=== PATIENT | male | born 2000 | race Caucasian/White ===

== ENCOUNTER 2020-04-10 18:11 | Emergency (ER) | payer SELFPAY ==
--- NOTE | 2020-04-10 19:21 | EDM.PDOC ---
ED HPI GENERAL MEDICAL PROBLEM - General Chief Complaint: ENT Problem Stated Complaint: SORE THROAT Time Seen by Provider: 04/10/20 19:05 - History of Present Illness INITIAL COMMENTS - FREE TEXT/NARRATIVE: 1-year-old male presents the emergency room with a sore throat. The sore throat started earlier this afternoon. Seems to be in the left side feels like he has some swelling in the front of his neck. The patient is most c oncerned because he has a history of an enlarged thyroid and a strong family history of thyroid problems. Patient denies any fevers or chills he has not tried anything for the sore throat. Patient has not had any abdominal pain no nausea vomiting constipation or diarrhea. He has not any breathing difficulties or shortness of breath. He is able to swallow without difficulty. Throat Pain Score (Numeric/FACES): 5 - Related Data Allergies Allergy/AdvReac Type Severity Reaction Status Date / Time No Known Allergies Allergy Verified 04/10/20 18:38 Home Meds: Home Meds . [No Known Home Meds] 04/10/20 [History] Past Medical History - Past Surgical History Musculoskeletal Surgical History: Reports: Other (See Below) Other Musculoskeletal Surgeries/Procedures:: back surgery- L3-L5 fused. 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 tibia fx. football injury Social & Family History - Tobacco Use Smoking Status *Q: Never Smoker - Caffeine Use Caffeine Use: Reports: None - Recreational Drug Use Recreational Drug Use: No ED ROS ENT - Review of Systems Review Of Systems: See Below Constitutional: Reports: No Symptoms HEENT: Reports: Throat Pain, Other Respiratory: Reports: No Symptoms Cardiovascular: Reports: No Symptoms Endocrine: Reports: No Symptoms GI/Abdominal: Reports: No Symptoms : Reports: No Symptoms ED EXAM, ENT - Physical Exam Exam: See Below Exam Limited By: No Limitations General Appearance: Alert, No Apparent Distress Eye Exam: Bilateral Eye: Normal Inspection Ears: Normal External Exam, Normal Canal, Hearing Grossly Normal, Normal TMs Nose: Normal Inspection, Normal Mucousa, No Blood Mouth/Throat: Normal Inspection, Normal Gums, Normal Lips, Normal Oropharynx (For the most part normal. Tonsils are slightly enlarged no erythema no exudate noted over the tonsils or the posterior pharynx.), Normal Teeth Head: Atraumatic, Normocephalic Neck: Normal Inspection, Supple, Non-Tender, Full Range of Motion, Thyromegaly (Possibly minimally enlarged). No: Lymphadenopathy (L), Lymphadenopathy (R) Respiratory/Chest: No Respiratory Distress, Lungs Clear Cardiovascular: Regular Rate, Rhythm, No Edema, No Murmur GI/Abdominal: Normal Bowel Sounds, Soft, Non-Tender, Abnormal Bowel Sounds (Spleen is not tender liver is not tender) Course - Vital Signs Last Recorded V/S: Last Vital Signs Temp 36.6 C 04/10/20 18:35 Pulse 80 04/10/20 18:35 Resp 18 04/10/20 18:35 BP 125/72 04/10/20 18:35 Pulse Ox 98 04/10/20 18:35 - Orders/Labs/Meds Orders: Active Orders 24 hr Category Date Time Status CULTURE STREP A CONFIRMATION [] Stat Lab 04/10/20 18:40 Results STREP SCRN A RAPID W CULT CONF [] Stat Lab 04/10/20 18:40 Results - Re-Assessments/Exams Free Text/Narrative Re-Assessment/Exam: 04/10/20 19:24 Rapid strep is negative. I discussed the implications of this with the patient will go ahead discharge home. Departure - Departure Time of Disposition: 19:24 Disposition: Home, Self-Care 01 Clinical Impression: Pharyngitis - Discharge Information Referrals: PCP,Not In Area [Primary Care Provider] - Additional Instructions: Turn to the emergency room with any questions problems or worsening symptoms. Tylenol or Motrin as needed for discomfort you may also try [id number] throat lozenges. The confirmatory strep culture will be resulted in a day or 2 if it is positive you should hear from us. Follow-up with your regular physician to recheck your thyroid in the near future. Sepsis Event Note (ED) - Evaluation Sepsis Screening Result: No Definite Risk - Focused Exam Vital Signs: Vital Signs Temp Pulse Resp BP Pulse Ox 04/10/20 18:35 36.6 C 80 18 125/72 98
== END 2020-04-10 19:31 | disposition home or self-care (01) ==
LOC: JD.ED 18:11
DX: J02.9 Acute pharyngitis, unspecified (principal)
CPT/HCPCS: 87081; 87430; 99282; 99283